=== PATIENT | female | born 1995 | race Caucasian/White ===

== ENCOUNTER → 2019-04-28 | Outpatient (CLI) | payer OTHER ==
[2019-05-01 02:10] LABS: CHLAMYDIA TRACHOMATIS, NAA Negative (Negative); NEISSERIA GONORRHOEAE, NAA Negative (Negative)
== END | disposition home or self-care (01) ==
LOC: LAB 19:15 → LAB SHORT 19:15
PROVIDERS: Advanced Practice Midwife
DX: Z11.3 Encounter for screening for infections with a predominantly sexual mode of transmission (principal)
CPT/HCPCS: 87491; 87591

== ENCOUNTER → 2021-09-01 | Outpatient (CLI) | payer OTHER ==
[2021-09-01 18:26] LABS: Source, Urine Clean Catch
[2021-09-01 20:15] LABS: Bacteria Few /hpf; Red Blood Cells, Urine 0-2 /hpf (0-2); Squamous Epithelial Cells Few /hpf (Few); White Blood Cells, Urine 0-2 /hpf (0-5)
== END | disposition home or self-care (01) ==
LOC: LAB 14:40 → LAB SHORT 14:40
PROVIDERS: Family Medicine
DX: Z34.01 Encounter for supervision of normal first pregnancy, first trimester (principal)
CPT/HCPCS: 81015; 87086

== ENCOUNTER → 2022-04-03 | Outpatient (CLI) | payer OTHER | LOC: LAB SHORT 17:09 → LAB 17:09 | DX: O09.893 Supervision of other high risk pregnancies, third trimester (principal) | CPT/HCPCS: 87081; 87150 ==

== ENCOUNTER 2022-04-30 19:46 | Inpatient (IN) | payer OTHER ==
[~2022-04-30] VITALS: Ht 182.9 cm; Wt 96.0 kg
[2022-04-30] MEDS ORDERED: Prozac20 MG PO (20:18)
[2022-04-30] MEDS ORDERED: PRENATAL TABLE1 EAC2 PO (20:19)
[2022-04-30 20:43] LABS: Hematocrit 38.3 % (33.0-51.0); Hemoglobin 13.1 g/dL (11.5-16.0); Mean Corpuscular HGB 30.3 pg (26.0-34.0); Mean Corpuscular HGB Conc 34.2 g/dL (31.5-36.5); Mean Corpuscular Volume 89 fL (80-100); Mean Platelet Volume 12.8 fL (9.1-12.4); Platelet Count 152 K/mm3 (150-400); RDW Coefficient Variation 15.1 % (11.7-14.2); RDW Standard Deviation 49.7 fL (35.1-46.3); Red Blood Cell Count 4.32 M/mm3 (3.80-5.20)
[2022-04-30 20:53] LABS: White Blood Cell Count 9.86 K/mm3 (4.00-11.30)
[2022-04-30 20:56] LABS: BAND PERCENT MAN 2 % (0-8); BASOPHILS PERCENT MAN 0 % (0-2); EOSINOPHILS ABSOLUTE MAN 0.09 K/mm3 (0.00-0.68); EOSINOPHILS PERCENT MAN 1 % (0-6); LYMPHOCYTES % ATYPICAL MANUAL 1 % (0-0); LYMPHOCYTES ABSOLUTE MAN 1.87 K/mm3 (0.84-5.20); LYMPHOCYTES PERCENT MAN 18 % (21-46); MONOCYTES ABSOLUTE MAN 0.69 K/mm3 (0.16-1.47); MONOCYTES PERCENT MAN 7 % (4-13); NEUTROPHILS ABSOLUTE MAN 7.19 K/mm3 (1.96-9.15); SEG NEUTROPHILS PERCENT MAN 71 % (41-73); TOTAL CELLS COUNTED 100
--- NOTE | 2022-05-01 10:51 | NUR ---
DR. MAYER WAS IN ROOM TO PLACE AN EPIDURAL. EPIDURAL WAS PLACED, LOADING DOSE ADMINISTERED PER DR. MAYER'S REQUEST WHILE STARTING EPIDURAL PUMP WITH DR. MAYER AT BEDSIDE. DR. MAYER STAYED AT PATIENT'S BEDSIDE, PATIENT HAD WINDOW OF PAIN, DR. MAYER ADMINISTERED A BUPIVICAINE BOLUS AND PATIENT CONTINUED TO HAVE WINDOW OF PAIN. DR. MAYER AND PATIENT DISCUSSED CONTINUING TO WAIT FOR EPIDURAL TO WORK OR TRY REPLACING. PATIENT ELECTED TO REPLACE AND CATHETER WAS PULLED BY DR. MAYER. DR. MAYER ATTEMPTED A SECOND EPIDURAL BUT COULD NOT ADVANCE CATHETER. ADDITIONAL CATHETER WAS ATTEMPTED BUT WOULD NOT ADVANCE. PATIENT BECAME SYMPTOMATIC - DIAPHORETIC, DIZZY, AND PALE AND REPORTED FEEL "ICKY." PATIENT WAS LAID ON SIDE, PROCEDURE STOPPED, DR. MAYER STAYED AT BESIDE TO ENSURE PATIENT SAFETY. DR. MAYER STATED SHE WOULD CALL ANOTHER ANESTHESIOLOGIST AND EITHER HERSELF OR ANOTHER ANESTHESIOLOGIST WOULD RETURN FOR ANOTHER ATTEMPT.
--- NOTE | 2022-05-01 17:46 | NUR ---
preciptor JACEK rn to labor, agree with above assessment
--- NOTE | 2022-05-02 03:14 | NUR ---
RT CALLED TO ROOM 117 STAT AFTER DELIVERY. UPON MY ARRIVAL, TOOK OVER T-PIECE RESUSCITATOR. SUCTIONED WITH DELEE FOR SMALL AMOUNT THICK CLEAR SECRETIONS FROM [employer]. BABY HAD POOR AND INCONSISTENT RESP EFFORT. PPV DONE AT PIP 20, PEEP 5 FOR APPROX 1.5-2 MINUTES. BABY BEGAN TO HAVE IMPROVED COLOR AND CONSISTENT RESPIRATIONS; HELD CPAP 5 AND 21% FIO2 AT THIS TIME. RN HAD NOTED LOW HEART RATE; HEART RATE IS NOW CONSISTENTLY > 100. NO RETRACTIONS OR GRUNTING BUT RR IN 70'S. HELD CPAP FOR APPROX 3 MINS, THEN REMOVED AND RR DECREASED TO 40'S, BABY APPEARS COMFORTABLE, IN NO RESP DISTRESS, WITH GOOD COLOR. RT EXCUSED. RN TO CALL IF RT NEEDED.
--- NOTE | 2022-05-02 04:16 | NUR ---
BABY ON RADIANT WARMER; RT JESIKA IN ROOM PROVIDING INTERMITTENT PPV BUT MOSTLY CPAP; BABY IS HAVING SPONTANEOUS RESPIRATIONS WITH OCCASIONAL HR DROPS FROM 130'S TO LOW 100; DROPS OCCUR ABOUT EVERY 30 SECONDS AND LAST FOR 4-5 SECONDS; STEADILY IMPROVING RESPIRATIONS BECOME MORE REGULAR; COLOR IS IMPROVING BABY BREATHING WELL ON HER OWN AND HR STEADY AT 130; TRUNK PINK WITH ACROCYANOSIS; BABY PLACED SKIN TO SKIN WITH MOM AT 0310
--- NOTE | 2022-05-02 10:33 | NUR ---
UP TO SHOWER. CARLOS EDUARDO SELF CARE WELL WITH MINIMAL ASSIST. PT GETTING MORE CONFORTABLE BEING UP AND MOVING AROUND. WILL CALL IF NEEDS FURTHER ASSISTANCE IN THE SHOWER. IN REMAINS IN THE ROOM.
--- NOTE | 2022-05-02 11:41 | NUR ---
1100: PT REQUEST RN TO WATCH NB. OK TO BOTTLE FEED IF NB HUNGRY. PT REQUESTS TO SLEEP AND WILL CALL WHEN SHE IS AWAKE
--- NOTE | 2022-05-03 10:58 | NUR ---
D/C HOME WITH HOME INSTRUCTIONS ALL QUESTIONS ANSWERED
== END 2022-05-03 11:45 | disposition home or self-care (01) | DRG 807 ==
LOC: OBS 19:46 → BC 19:47 → OBS 19:53 → BC 19:54
PROVIDERS: ADMIT Obstetrics & Gynecology
PROC: 10D07Z6 Extraction of Products of Conception, Vacuum, Via Natural or Artificial Opening (ICD-10-PCS; principal; 2022-05-02)
PROC: 0KQM0ZZ Repair Perineum Muscle, Open Approach (ICD-10-PCS; 2022-05-02)
PROC: 00HU33Z Insertion of Infusion Device into Spinal Canal, Percutaneous Approach (ICD-10-PCS; 2022-05-02)
PROC: 3E0R3BZ Introduction of Anesthetic Agent into Spinal Canal, Percutaneous Approach (ICD-10-PCS; 2022-05-02)
PROC: 3E033VJ Introduction of Other Hormone into Peripheral Vein, Percutaneous Approach (ICD-10-PCS; 2022-05-02)
PROC: 3E0P7VZ Introduction of Hormone into Female Reproductive, Via Natural or Artificial Opening (ICD-10-PCS; 2022-05-02)
PROC: 10907ZC Drainage of Amniotic Fluid, Therapeutic from Products of Conception, Via Natural or Artificial Opening (ICD-10-PCS; 2022-05-02)
PROC: 0UC97ZZ Extirpation of Matter from Uterus, Via Natural or Artificial Opening (ICD-10-PCS; 2022-05-02)
DX: O48.0 Post-term pregnancy (principal); Z37.0 Single live birth; Z3A.40 40 weeks gestation of pregnancy; O26.893 Other specified pregnancy related conditions, third trimester; O99.344 Other mental disorders complicating childbirth; F41.3 Other mixed anxiety disorders; F32.A Depression, unspecified; O69.81X0 Labor and delivery complicated by cord around neck, without compression, not applicable or unspecified; O70.1 Second degree perineal laceration during delivery; O75.89 Other specified complications of labor and delivery; O76 Abnormality in fetal heart rate and rhythm complicating labor and delivery; Z67.41 Type O blood, Rh negative; Z98.890 Other specified postprocedural states; Z91.018 Allergy to other foods; Z91.013 Allergy to seafood; Z79.899 Other long term (current) drug therapy
CPT/HCPCS: 36415; 51701; 51702; 85025; 85460; 86850; 86900; 86901; A9270; J1200; J1885; J2210; J2405; J2590; J2791; J3010; J7120

== ENCOUNTER → 2024-11-17 | Outpatient (CLI) | payer OTHER ==
[~2024-11-17] MED LIST: PRENATAL TABLE1 EAC2 PO; Prozac20 MG PO
[2024-11-17 13:57] LABS: Source, Urine Clean Catch
[2024-11-17 15:39] LABS: Red Blood Cells, Urine 0-2 /hpf (0-2); White Blood Cells, Urine 0-2 /hpf (0-5)
== END ==
LOC: LAB SHORT 09:30 → LAB 09:30
PROVIDERS: Obstetrics & Gynecology
DX: Z34.81 Encounter for supervision of other normal pregnancy, first trimester (principal)
CPT/HCPCS: 81015; 87086